=== PATIENT | male | born 1955 | race Caucasian/White ===

== ENCOUNTER 2018-09-26 19:49 | Emergency (ER) | payer OTHER, MEDICAID ==
[2018-09-26 19:57] VITALS: RESP 18
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
[2018-09-27 00:47] VITALS: BP 140/69; PULSE 87; TEMP 98.7
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
[2018-09-29 15:56] VITALS: O2SAT 96
== END 2018-09-27 00:53 | disposition home or self-care (01) ==
LOC: H.ER 19:49
DX: S09.90XA Unspecified injury of head, initial encounter (principal); R68.84 Jaw pain; M25.552 Pain in left hip; E11.9 Type 2 diabetes mellitus without complications; Z86.59 Personal history of other mental and behavioral disorders; K05.6 Periodontal disease, unspecified; V49.50XA Passenger injured in collision with unspecified motor vehicles in traffic accident, initial encounter